=== PATIENT | male | born 1965 | race Caucasian/White ===

== ENCOUNTER 2022-09-23 03:50 | Emergency (ER) | payer OTHER, SELFPAY ==
[2022-09-23 03:51] VITALS: BP 115/67; PULSE 137; RESP 15; TEMP 39.7; O2SAT 91; BMI 27.0
[2022-09-23 03:55] VITALS: BP 115/67; PULSE 134; RESP 15; TEMP 39.7; O2SAT 91
--- NOTE | 2022-09-23 04:05 | RAD_ITS ---
EXAM: XR LEFT FOREARM, 2 VIEWS CLINICAL INDICATION: left FA infection ?? gas in soft tissue TECHNIQUE: Frontal and lateral views of the left forearm. COMPARISON: No relevant prior studies available. FINDINGS: BONES/JOINTS: Unremarkable. No acute fracture. No dislocation. SOFT TISSUES: Diffuse soft tissue swelling. No soft tissue gas. RAD/Forearm 2 Views IMPRESSION: 1. No soft tissue gas. 2. Diffuse soft tissue swelling. Electronically Signed: Fidel Mayo MD at 5:28 EDT ,
--- NOTE | 2022-09-23 04:05 | RAD_ITS ---
EXAM: XR LEFT HUMERUS, 2 OR MORE VIEWS CLINICAL INDICATION: infection ? gas TECHNIQUE: Frontal and lateral views of the left humerus. COMPARISON: No relevant prior studies available. FINDINGS: BONES/JOINTS: Unremarkable. No acute fracture. No subluxation. Normal alignment. Preservation of the joint space. No sclerotic or destructive changes observed. SOFT TISSUES: Diffuse soft tissue swelling. No radiopaque foreign body. No soft tissue gas. RAD/Humerus min 2 Views IMPRESSION: 1. No soft tissue gas. 2. Diffuse soft tissue swelling. 3. No bony abnormality. Electronically Signed: Fidel Mayo MD at 5:11 EDT ,
--- NOTE | 2022-09-23 04:10 | EX.ED.DYSGE1 ---
HPI History of Present Illness Chief Complaint: Trauma Detail of Chief Complaint: Fever with left arm swelling and redness. Informant: patient Onset/Context/Timing Onset: Days Context: Gradual Onset Timing: Continuous Current Severity: Moderate Maximum Severity: Moderate Narrative Narrative: 57-year-old male who previously had noticing a past medical history. 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 At that time he was taken to [facility] was diagnosed with rib fractures and splenic laceration. He was hospitalized for approximately a week. Was discharged last . He also had some sort of injury to his left arm but they told him that it was not fractured. States on Thursday 4 days ago he started having more discomfort in his left arm, redness and swelling. It is progressively gotten worse. He has developed a fever and came in to be evaluated. He denies any cough. Patient reportedly has a penicillin allergy that causes him to have a rash. Prior similar symptoms: No Recent Illness/Hospitalization: Yes [facility] Medical History Broken ankle Broken leg Broken ribs Crush accident Home Medications Unobtainable 09/23/22 [History Last Taken Unknown] Allergy/AdvReac Type Severity Reaction Status Date / Time bee venom protein (honey bee) Allergy Swelling Verified 09/23/22 03:57 [bees] Penicillins [PCN] Allergy Rash Verified 09/23/22 03:57 Social History Smoking Status: Never smoker ROS ROS ED ROS Narrative Fever. Left arm redness and swelling. Review of Systems ROS Unobtainable: Denies due to encephalopathy Constitutional Constitutional ED: Reports chills and fever(s) Eyes Eyes: Denies blurry vision ENT ENT ED: Denies ear pain Cardiovascular Cardiovascular: Denies chest pain Respiratory/Chest Respiratory/Chest: Denies cough or dyspnea Gastrointestinal Gastrointestinal: Denies abdominal pain Genitourinary Genitourinary ED: Denies dysuria or hematuria Musculoskeletal Musculoskeletal: Denies arthralgias Integumentary Denies abscess Neurologic Neurologic: Denies headache(s) Psychiatric Psychiatric: Denies anxiety or depression Endocrine Endocrinology: Denies cold intolerance Hematologic/Lymphatic Hematologic/Lymphatic: Reports none Allergic/Immunologic Allergic/Immunologic ED: Denies mouth swelling or tongue swelling EXAM Physical Exam Narrative Exam Narrative: 57-year-old male vital signs show a fever of 103.5. Heart rate of 135. Blood pressure 115/67. Patient looks ill possibly even septic. Is awake and alert. HEENT exam no signs of trauma to his face. Tongue is dry. Neck nontender. No lymphadenopathy. Lungs clear to auscultation bilaterally. He has tenderness over his rib cage and has known rib fractures from a prior recent injury. Heart tachycardic rate about 135 no murmur appreciated. Abdomen is soft and nontender. His right upper and both lower extremities are nontender with normal range of motion. He has substantial swelling of his left forearm and upper arm. There is obvious cellulitis. There is drainage of fluid serosanguineous from the medial aspect of his left elbow. He cannot do much movement of the arm. Has pain with range of motion passively.. The arm is obviously infected. Patient has a palpable radial pulse. He is able to wiggle his fingers in his left hand. He has normal touch sensation. At this time it does not appear to be a compartment syndrome neurologically he is awake and alert. He does have weakness to the left arm. Const Vital Signs: 09/23/22 03:51 09/23/22 03:55 09/23/22 03:59 Temperature 103.5 F H 103.5 F H Temperature Source Oral Oral Pulse Rate 137 H 134 H Respiratory Rate 15 15 Respiratory Effort Short of Breath Blood Pressure 115/67 115/67 Blood Pressure Mean 83 83 Pulse Ox 91 91 Oxygen Delivery Method 09/23/22 05:15 09/23/22 06:00 09/23/22 06:33 Temperature 102.9 F H 100.5 F H Temperature Source Oral Oral Pulse Rate 128 H 125 H 119 H Respiratory Rate 19 H 20 H 16 Respiratory Effort Blood Pressure 125/72 H 123/67 H 118/71 Blood Pressure Mean 89 85 86 Pulse Ox 96 93 97 Oxygen Delivery Method Room Air Room Air 09/23/22 06:33 09/23/22 07:26 Temperature 100.5 F H 100.5 F H Temperature Source Oral Pulse Rate 119 H Respiratory Rate 18 Respiratory Effort Blood Pressure 118/71 Blood Pressure Mean 86 Pulse Ox 97 Oxygen Delivery Method Positive well nourished and well developed; Negative for cachectic, contractures or unkempt General Appearance ED: well developed; Negative for unkempt, cachectic, contractures, cyanotic, diaphoretic, NAD or pallor Nutritional Appearance: Negative for cachectic HEENT Reports dry mucous membranes; Denies moist mucous membranes Negative for trauma or tenderness Mouth ED: Yes dry mucous membranes Mouth: dry mucous membranes Eyes PERRL and EOMs intact bilaterally General Eye ED: Negative for pale conjunctiva or scleral icterus Neck no lymphadenopathy, supple and no JVD General: Negative for tenderness Lymph Lymphatic: Negative for other Chest Wall Negative for inspection of chest normal or palpation of chest normal Chest Narrative: Tender rib cage with known rib fractures. No crepitance. Resp normal respiratory effort and clear to auscultation bilaterally Effort and Inspection: Negative for retractions Auscultation: Negative for rales, rhonchi or wheezes Cardio regular rhythm, S1 normal heart sound, S2 normal heart sound and no murmurs; Negative for regular rate Rate: tachycardic GI normal to inspection, nondistended, normoactive bowel sounds, non-tender, non-distended and no masses Inspection: Negative for abdominal distention Auscultation: normoactive bowel sounds Palpation: soft; Negative for tender or guarding Back/Spine no CVA tenderness General Back: Negative for CVA tenderness Cervical Spine: Negative for cervical spine tenderness Thoracic Spine / Upper Back: Negative for thoracic spinal tenderness Lumbar Spine / Lower Back: Negative for lumbar spinal tenderness Extremity Negative for normal to inspection Extremity Narrative: Left arm tender, swollen, red consistent with cellulitis. Drainage medially along the elbow that is serosanguineous. Decreased range of motion left upper extremity weakness. General Extremety ED: Yes edema General Extremity: edema Neuro oriented x3 and CN's II-XII intact bilaterally Sensorium / Orientation: alert; Negative for orientation impaired, lethargic or stuporous Motor Exam: Negative for strength 5/5 throughout Psych mental status grossly normal Appearance: Negative for unkempt Attitude: No agitated Mood & Affect: Negative for depressed, anxious or tearful Skin No no rashes or lesions noted and No no wounds Skin Narrative: Left arm cellulitic. Wound to the left elbow that is draining. General Skin Exam: Negative for jaundice or pallor Wounds: wounds noted MDM MDM MDM Narrative Medical decision making narrative: 57-year-old male recent trauma with a tow motor at work. Was hospitalized a week ago in [facility] with multiple rib fractures, left upper extremity injury and a splenic laceration. Was discharged last . On Thursday he started having pain and swelling in his left arm is recently developed a fever and drainage. Has an obvious cellulitic left arm. Potentially could even be gas gangrene. Is a penicillin allergy. He will be started on IV clindamycin 900 mg. IV fluids. He may be septic from the infection. Labs and x-rays will be obtained. He will need to be admitted he may need to be transferred to a larger facility due to the potential need of surgery on this extremity. Repeat exam at 5 AM patient is doing okay. He remains tachycardic. He has received a liter of fluid. He has received IV clindamycin. I will write for him to get a second liter of fluid. Patient doing well on repeat exam. I did call multiple facilities both [facility] did not have any bed availability. I spoke to the transfer line and a physician at [facility]. The patient was excepted through the emergency department to be seen in the emergency department to decide which service would admit him. Prior to transfer he was stable. History & Record Review Discussion w/independent historian: Patient Lab Data Attestation: I reviewed the patient's lab results. Lab results narrative: CBC shows no elevated white count 19,000 consistent with a cellulitis. H&H 14.1 and 41. Platelets 299. Electrolytes show sodium 134 gap at 9. BUN and creatinine 24 and 1.35. Glucose 219. CPK 102. Lactic acid is elevated 2.6. Labs: Laboratory Results - last 24 hr 09/23/22 09/23/22 09/23/22 04:00 04:00 04:00 WBC 19.0 H RBC 4.75 Hgb 14.1 Hct 41.4 MCV 87.2 MCH 29.7 MCHC 34.1 RDW Std Deviation 39.1 RDW Coeff of Makayla 12.2 Plt Count 299 MPV 9.5 Immature Gran % (Auto) 0.700 Neut % (Auto) 91.2 H Lymph % (Auto) 4.6 L [place] % (Auto) 3.2 Eos % (Auto) 0.0 Baso % (Auto) 0.3 Absolute Neuts (auto) 17.4 H Absolute Lymphs (auto) 0.87 Nucleated RBC % 0 Sodium 134 L Potassium 3.9 Chloride 103 Carbon Dioxide 22.0 Anion Gap 9 BUN 24 H Creatinine 1.35 H Estim Creat Clear Calc 61.83 Est GFR (MDRD) Af Amer 71 Est GFR (MDRD) Non-Af 58 L BUN/Creatinine Ratio 17.8 Glucose 219 H Lactic Acid 2.6 H* Calcium 8.5 Total Creatine Kinase 102 Radiography Chest X-Ray - ED: 1 View, Read by ED Physician, Normal, Heart, Lungs, Mediastinum, Bony Structures (Prior rib fractures on the left ribs #4, 5 and 6.) and No Acute Disease Diagnostic Testing: Clinical Impression(s) from Imaging Studies Forearm X-Ray 09/23/22 04:05 IMPRESSION: 1. No soft tissue gas. 2. Diffuse soft tissue swelling. Electronically Signed: Fidel Mayo MD at 5:28 EDT Reading Location ID and State: [place] / [employer] , Service support , Humerus X-Ray 09/23/22 04:05 IMPRESSION: 1. No soft tissue gas. 2. Diffuse soft tissue swelling. 3. No bony abnormality. Electronically Signed: Fidel Mayo MD at 5:11 EDT Reading Location ID and State: [place] / [employer] , Service support , Chest X-Ray 09/23/22 04:45 IMPRESSION: 1. Atelectasis in the lung bases bilaterally. Areas of pneumonia cannot be excluded. 2. Fractures of the left fourth through sixth ribs posterior laterally. Electronically Signed: Fidel Mayo MD at 5:30 EDT Reading Location ID and State: [employer] / [employer] , Service support , Left forearm x-ray 2 views shows soft tissue swelling. No fracture. No dislocation. No subcu air. Interpreted by myself. Left humerus x-ray 3 views shows soft tissue swelling. No fracture. No dislocation. No subcu air. Interpreted by myself. Chest x-ray shows 3 prior rib fractures on the left fourth, fifth and sixth ribs. No acute process. No pneumonia. No pneumothorax. Interpreted by myself. Critical Care Time Critical Care Time: Yes Critical care time (excluding procedures): 30-74 minutes, Including time spent:, Discussing w/Patient &/or Family/Decoration Checker, Discussing w/Consultants, Arranging Admission or Transfer, Performing Direct Patient Care at Bedside and - (33 min) Discharge Plan Triage Chief Complaint: Trauma ED Provider: Jese Godinez Dx/Rx/DC Orders Clinical Impression: Cellulitis of arm, left, Encounter related to worker's compensation claim, History of fracture of rib, H/O recent trauma, Leukocytosis, Sepsis Prescriptions: No Action Unobtainable Primary Care Provider: Care Physician,No Primary Referrals: Care Physician,No Primary [Primary Care Provider] - Disposition Disposition: Acute Care Hospital Discharge Location: [facility] Discharge Date/Time: 09/23/22 07:36
[2022-09-23] MEDS: fentaNYL 100 MCG/2 ML Ampul 50 MCG IV (04:14)
[2022-09-23] MEDS: 0.9% Normal Saline 1,000 ML 1000 ML IV (04:14)
[2022-09-23 04:17] LABS: Absolute Lymphocyte Count 0.87 X10^3/uL (0.83-4.51); Absolute Neutrophil Count 17.4 X10^3/uL (2.0-7.7); Basophil# 0.06 X10^3/uL; Basophil% 0.3 % (0-1); Hematocrit 41.4 % (40-54); Hemoglobin 14.1 g/dL (13.0-16.5); Lymphocyte # 0.87 X10^3/ul (0.83-4.51); Lymphocyte % 4.6 % (19-41); Mean Corp Hgb Conc 34.1 g/dL (32-36); Mean Corpuscular Hgb 29.7 pg (27.0-32.0); Mean Corpuscular Volume 87.2 fL (80-94); Mean Platelet Vol. 9.5 fl (6.2-12.0); Monocyte# 0.61 X10^3/uL; Monocyte% 3.2 % (0-10); NRBC Flagged by Analyzer 0 % (0-5); Neutrophil # 17.37 X10^3/uL (2.7-7.7); Neutrophil % 91.2 % (47-70); Platelet Count 299 K/mm3 (150-450); RBC Distribution Width CV 12.2 % (11.6-14.6); RBC Distribution Width SD 39.1 fl (35.1-43.9); Red Blood Count 4.75 M/mm3 (4.6-6.2)
[2022-09-23] MEDS: Acetaminophen 500 MG Tablet 1000 MG PO (04:19)
[2022-09-23] MEDS: Clindamycin 900 MG/50 ML BAG 75 MG IV (04:27)
[2022-09-23 04:34] LABS: Anion Gap 9 (5-15); BUN 24 mg/dL (7-18); BUN/Creat Ratio 17.8 RATIO (10-20); CPK Total, Creatine Kinase 102 U/L (39-308); Calcium,Total 8.5 mg/dL (8.5-10.1); Chloride 103 mmol/L (98-107); Creatinine, Serum 1.35 mg/dL (0.70-1.30); EST Glomerular Filtration Rate 58 mL/min (>60); Est Glom Filt Rate - Afr Amer 71 mL/min (>60); Estimated Creatinine Clearance 61.83 ml/min; Glucose 219 mg/dL (74-106); Potassium 3.9 mmol/L (3.5-5.1); Sodium Level 134 mmol/L (136-145)
[2022-09-23 04:42] LABS: Lactic Acid 2.6 mmol/L (0.4-1.9)
--- NOTE | 2022-09-23 04:45 | RAD_ITS ---
EXAM: XR CHEST, 1 VIEW CLINICAL INDICATION: fever. Rib fractures recently. TECHNIQUE: Frontal view of the chest. COMPARISON: No relevant prior studies available. FINDINGS: LUNGS AND PLEURAL SPACES: Atelectasis in the lung bases bilaterally. No pneumothorax. No effusion. HEART: Unremarkable. Cardiac silhouette not enlarged. MEDIASTINUM: Central airways and mediastinal contour are unremarkable. BONES/JOINTS: Fractures of the left fourth through sixth ribs posterior laterally. SOFT TISSUES: Unremarkable. RAD/Chest 1 View (Portable) IMPRESSION: 1. Atelectasis in the lung bases bilaterally. Areas of pneumonia cannot be excluded. 2. Fractures of the left fourth through sixth ribs posterior laterally. Electronically Signed: Fidel Mayo MD at 5:30 EDT ,
[2022-09-23 05:15] VITALS: BP 125/72; PULSE 128; RESP 19; TEMP 39.4; O2SAT 96
[2022-09-23] MEDS: 0.9% Normal Saline 1,000 ML 999 ML IV (05:20)
[2022-09-23 06:00] VITALS: BP 123/67; PULSE 125; RESP 20; O2SAT 93
[2022-09-23 06:33] VITALS: BP 118/71; PULSE 119; RESP 16; TEMP 38.1; O2SAT 97
--- NOTE | 2022-09-23 07:00 | NURSING ---
PT IS BEING TRANSFERRED TO [facility] IN [place]-- CALLED PHYSICIANS TO SET UP TRANSPORT VIA [facility]--- ETA GIVEN-- [id number]
[2022-09-23 07:26] VITALS: BP 118/71; PULSE 119; RESP 18; TEMP 38.1; O2SAT 97
[2022-09-23 08:15] LABS: Reflex Lactate? Y
--- NOTE | 2022-09-24 03:30 | ED.RN ---
positive blood cultures received from lab, called [facility] and reports results to Zhang. Results faxed to [phone].
== END 2022-09-23 07:36 | disposition short-term general hospital (02) ==
PROVIDERS: Emergency Provider Emergency Medicine; Visit Provider Emergency Medicine
DX: A41.9 Sepsis, unspecified organism (principal); L03.114 Cellulitis of left upper limb; B95.0 Streptococcus, group A, as the cause of diseases classified elsewhere; S22.42XA Multiple fractures of ribs, left side, initial encounter for closed fracture; S56.902A Unspecified injury of unspecified muscles, fascia and tendons at forearm level, left arm, initial encounter; V98.8XXA Other specified transport accidents, initial encounter; Y99.0 Civilian activity done for income or pay
CPT/HCPCS: 71045; 73060; 73090; 80048; 82550; 83605; 85025; 87040; 87077; 87186; 96361; 96365; 96375; 99285; J7030; A4216